=== PATIENT | male | born 1975 | race Caucasian/White ===

== ENCOUNTER 2018-10-01 19:36 | Emergency (ER) | payer MEDICAID ==
[~2018-10-01] VITALS: Ht 170.2 cm; Wt 119.3 kg
[2018-10-01 19:49] VITALS: BP 122/50
--- NOTE | 2018-10-01 19:52 | NUR ---
Pt taken to bed 11.
--- NOTE | 2018-10-01 20:00 | NUR ---
43 Y/O MALE PRESENTS TO ED, C/O LEFT FLANK ACHING PAIN. PT STATES PAIN STARTED 2 DAYS AGO AND RADIATES TO HIS GROIN AND RIGHT LEG. AMBULATES SELF WITH SLOW STEADY GAIT. PT DENIES PAIN VOIDING. PT STATES HE FEELS PRESSURED PAIN DURING BM. DENIES ANY CONSTIPATION. ACTIVE BS ALL QUADRANTS. PT VSS. ERMD AWARE. WILL CONTINUE TO MONITOR.
[2018-10-01] MEDS ORDERED: CYCLOBENZAPRINE 10 MG TAB PO ONE (20:15)
[2018-10-01] MEDS ORDERED: KETOROLAC 60 MG/2 ML VIAL IM ONE (20:15)
--- NOTE | 2018-10-01 20:50 | NUR ---
PT TAKEN TO X RAY
[2018-10-01] MEDS ORDERED: HYDROcodone/APAP 5/325 MG 1 TAB TAB PO ONE (21:40)
[2018-10-01 21:57] VITALS: BP 122/50
--- NOTE | 2018-10-01 21:57 | NUR ---
PT DISCHARGE WITH PAPERWORK. RX MOTRIN AND FLEXERIL. EDUCATED PT REGARDING MEDICATIONS AND SIDE EFFECTS. EDUCATED PT REGARDING DISCHARGE DIAGNOSIS. PT VERBALIZED UNDERSTANDING OF TEACHING. TOLD PT TO FOLLOW UP WITH PCP AND WHEN TO RETURN TO ED. PT VSS. ALL QUESTIONS ANSWERED.
== END 2018-10-01 21:57 | disposition home or self-care (01) ==
LOC: MED 19:36
DX: S39.012A Strain of muscle, fascia and tendon of lower back, initial encounter (principal); X58.XXXA Exposure to other specified factors, initial encounter; Y93.89 Activity, other specified; Y92.89 Other specified places as the place of occurrence of the external cause; Y99.8 Other external cause status
CPT/HCPCS: 72110; 96372; 99283; J1885

== ENCOUNTER 2023-08-25 15:54 | Emergency (ER) | payer MEDICAID, OTHER ==
[~2023-08-25] VITALS: Ht 170.2 cm; Wt 128.5 kg
[2023-08-25 16:32] VITALS: BP 128/68; PULSE 83; RESP 19; TEMP 97.8; O2SAT 97
[2023-08-25] MEDS: KETOROLAC 30 MG/ML VIAL IM ONE (17:46)
[2023-08-25 17:55] VITALS: O2SAT 97
[2023-08-25 18:00] VITALS: O2SAT 97
[2023-08-25 18:02] LABS: BASOPHILS # (AUTO) 0.1 K/uL (0.00-0.22); BASOPHILS % (AUTO) 0.9 % (0.0-2.0); EOSINOPHILS # (AUTO) 0.2 K/uL (0-0.4); EOSINOPHILS % (AUTO) 2.6 % (0.0-4.0); HEMOGLOBIN 13.6 g/dL (12.0-18.0); LYMPHOCYTES # (AUTO) 1.7 K/uL (2.0-11.5); LYMPHOCYTES % (AUTO) 28.7 % (20.5-51.1); MEAN CORPUSCULAR HEMOGLOBIN 32 pg (27-31); MEAN CORPUSCULAR HGB CONC 33 g/dL (33-37); MEAN CORPUSCULAR VOLUME 97.2 fL (80-94); MONOCYTES # (AUTO) 0.6 K/uL (0.8-1.0); MONOCYTES % (AUTO) 10.3 % (1.7-9.3); NEUTROPHILS # (AUTO) 3.3 K/uL (1.8-7.7); NEUTROPHILS % (AUTO) 57.5 % (42.2-75.2); PLATELET COUNT (AUTO) 124 K/uL (140-450); RED BLOOD CELL COUNT(AUTO) 4.21 MIL/uL (4.20-6.10); WHITE BLOOD COUNT (AUTO) 5.8 K/uL (4.8-10.8)
[2023-08-25 18:13] LABS: ANION GAP 12.5 (8-16); CARBON DIOXIDE 27.9 mmol/L (21-32); CREATININE 0.7 mg/dL (0.6-1.3); POTASSIUM 4.4 mmol/L (3.5-5.1)
[2023-08-25 18:20] LABS: ALANINE AMINOTRANSFERASE 49 U/L (12-78); ALBUMIN 2.6 g/dL (3.4-5.0); ALKALINE PHOSPHATASE 283 U/L (50-136); ASPARTATE AMINOTRANSFERASE 83 U/L (15-37); BILIRUBIN,DIRECT 1.3 mg/dL (0.0-0.3); LIPASE 72 U/L (16-77); TOTAL BILIRUBIN 2.4 mg/dL (0.0-1.0); TOTAL PROTEIN, SERUM 7.8 g/dL (6.4-8.2)
[2023-08-25 21:30] LABS: APPEARANCE,URINE CLEAR (CLEAR); BILIRUBIN,URINE 1+ (NEGATIVE); BLOOD, URINE NEGATIVE (NEGATIVE); COLOR,URINE ORANGE (YELLOW); LEUKOCYTE ESTERASE ,URINE NEGATIVE (NEGATIVE); NITRITE, URINE NEGATIVE (NEGATIVE); PROTEIN,URINE NEGATIVE (NEGATIVE); UGLUCOSE NEGATIVE (NEGATIVE)
[2023-08-25 21:35] LABS: ICTOTEST NEGATIVE (NEGATIVE)
== END 2023-08-25 19:15 | disposition home or self-care (01) ==
LOC: MED 15:54
DX: R60.9 Edema, unspecified (principal); K74.60 Unspecified cirrhosis of liver
CPT/HCPCS: 36415; 71045; 76705; 80048; 80076; 81003; 83690; 83880; 84484; 85025; 93005; 96372; 99285; J1885; Q0092

== ENCOUNTER 2023-10-14 23:35 | Inpatient (IN) | payer OTHER ==
[~2023-10-14] VITALS: Ht 170.2 cm; Wt 107.5 kg
[~2023-10-14 23:35] MED LIST: FURO-570 PO; LACT-191 PO; SPIR100T PO
[2023-10-14 23:41] VITALS: BP 111/65; PULSE 79; RESP 16; TEMP 97.4; O2SAT 97
[2023-10-15 00:24] LABS: BASOPHILS # (AUTO) 0.1 K/uL (0.00-0.22); BASOPHILS % (AUTO) 1.4 % (0.0-2.0); EOSINOPHILS # (AUTO) 0.1 K/uL (0-0.4); EOSINOPHILS % (AUTO) 2.2 % (0.0-4.0); HEMATOCRIT 39.6 % (36-52); HEMOGLOBIN 13.9 g/dL (12.0-18.0); LYMPHOCYTES # (AUTO) 1.2 K/uL (2.0-11.5); LYMPHOCYTES % (AUTO) 22.4 % (20.5-51.1); MEAN CORPUSCULAR HEMOGLOBIN 35 pg (27-31); MEAN CORPUSCULAR HGB CONC 35 g/dL (33-37); MEAN CORPUSCULAR VOLUME 98.6 fL (80-94); MONOCYTES # (AUTO) 0.6 K/uL (0.8-1.0); MONOCYTES % (AUTO) 10.8 % (1.7-9.3); NEUTROPHILS # (AUTO) 3.5 K/uL (1.8-7.7); NEUTROPHILS % (AUTO) 63.2 % (42.2-75.2); PLATELET COUNT (AUTO) 105 K/uL (140-450); RED BLOOD CELL COUNT(AUTO) 4.02 MIL/uL (4.20-6.10); RED CELL DISTRIBUTION WIDTH 16.3 % (11.6-13.7); WHITE BLOOD COUNT (AUTO) 5.6 K/uL (4.8-10.8)
[2023-10-15 00:39] LABS: ANION GAP 10.6 (8-16); CALCIUM 8.8 mg/dL (8.5-10.1); CARBON DIOXIDE 25.6 mmol/L (21-32); POTASSIUM 4.2 mmol/L (3.5-5.1)
[2023-10-15 00:43] LABS: ALBUMIN 2.9 g/dL (3.4-5.0); BILIRUBIN,DIRECT 1.3 mg/dL (0.0-0.3); TOTAL BILIRUBIN 2.3 mg/dL (0.0-1.0); TOTAL PROTEIN, SERUM 8.7 g/dL (6.4-8.2)
[2023-10-15] MEDS: KETOROLAC 30 MG/ML VIAL IVP ONE (00:47)
[2023-10-15] MEDS: MORPHINE SULFATE 4 MG/ML SYR IVP ONE (01:19)
[2023-10-15] MEDS ORDERED: BUME1TAB92 PO (01:27)
[2023-10-15] MEDS ORDERED: SPIR50TA4 PO (01:27)
[2023-10-15] MEDS ORDERED: ACETAMINOPHEN 325 MG TAB PO PRN (02:20)
[2023-10-15] MEDS ORDERED: ONDANSETRON 4 MG/2 ML VIAL IVP PRN (02:20)
[2023-10-15] MEDS ORDERED: HYDROcodone/APAP 5/325 MG 1 TAB TAB PO PRN (02:20)
[2023-10-15] MEDS ORDERED: MORPHINE SULFATE 2 MG/ML SYR IVP PRN (02:20)
[2023-10-15] MEDS ORDERED: LORazepam 2 MG/ML VIAL IVP PRN (02:20)
[2023-10-15] MEDS ORDERED: PIPERACILLIN/TAZOBACTAM 3.375 GM VIAL IV ONE (05:04)
[2023-10-15] MEDS: PIPERACILLIN/TAZOBACTAM 3.375 GM in DEXTROSE 5% 50 ML IV SCH (05:10)
[2023-10-15] MEDS: PANTOPRAZOLE 40 MG INJ VIAL IVP SCH (09:18)
[2023-10-15 11:23] VITALS: PULSE 76
[2023-10-15 12:00] VITALS: BP 101/68; PULSE 76; RESP 16; TEMP 98.8; O2SAT 97
[2023-10-15 13:18] LABS: INR 1.43 (0.8-1.2); PROTHROMBIN TIME 14.7 secs (10.8-13.4)
[2023-10-15] MEDS: DEXT 5% / NACL 0.45% 1,000 ML IV SCH (14:48)
[2023-10-15 16:00] VITALS: BP 98/54; PULSE 61; RESP 18; TEMP 97.8; O2SAT 94
[2023-10-15 20:00] VITALS: BP 110/56; RESP 18; TEMP 97.3; O2SAT 95
[2023-10-15] MEDS: MEDS-TO-BEDS MC SCH (20:43)
[2023-10-15 22:18] VITALS: RESP 18; O2SAT 95
[2023-10-16 04:00] VITALS: BP 108/49; PULSE 71; RESP 18; TEMP 97; O2SAT 95
[2023-10-16 06:56] LABS: BASOPHILS % (AUTO) 0.6 % (0.0-2.0); EOSINOPHILS # (AUTO) 0.1 K/uL (0-0.4); EOSINOPHILS % (AUTO) 3.3 % (0.0-4.0); HEMATOCRIT 41.1 % (36-52); HEMOGLOBIN 14.1 g/dL (12.0-18.0); LYMPHOCYTES # (AUTO) 1.3 K/uL (2.0-11.5); LYMPHOCYTES % (AUTO) 29.2 % (20.5-51.1); MEAN CORPUSCULAR HEMOGLOBIN 34 pg (27-31); MEAN CORPUSCULAR HGB CONC 34 g/dL (33-37); MONOCYTES # (AUTO) 0.6 K/uL (0.8-1.0); MONOCYTES % (AUTO) 12.4 % (1.7-9.3); NEUTROPHILS # (AUTO) 2.5 K/uL (1.8-7.7); NEUTROPHILS % (AUTO) 54.5 % (42.2-75.2); PLATELET COUNT (AUTO) 104 K/uL (140-450); RED BLOOD CELL COUNT(AUTO) 4.11 MIL/uL (4.20-6.10); RED CELL DISTRIBUTION WIDTH 16.2 % (11.6-13.7); WHITE BLOOD COUNT (AUTO) 4.5 K/uL (4.8-10.8)
[2023-10-16 07:39] LABS: ALBUMIN 2.6 g/dL (3.4-5.0); ANION GAP 10.5 (8-16); CALCIUM 8.5 mg/dL (8.5-10.1); CARBON DIOXIDE 26.9 mmol/L (21-32); CREATININE 1.1 mg/dL (0.6-1.3); MAGNESIUM 1.8 mg/dL (1.8-2.4); POTASSIUM 4.4 mmol/L (3.5-5.1); TOTAL BILIRUBIN 3.9 mg/dL (0.0-1.0); TOTAL PROTEIN, SERUM 8.2 g/dL (6.4-8.2)
[2023-10-16 08:00] VITALS: BP 99/54; PULSE 62; RESP 18; TEMP 97.9; O2SAT 95
[2023-10-16] MEDS: BUPIVACAINE-MPF 0.25% 30 ML VIAL INJ ONE (09:49)
[2023-10-16] MEDS ORDERED: SEVOFLURANE 250 ML BTL INH ONE (10:05)
[2023-10-16] MEDS: MIDAZOLAM 2 MG/2 ML VIAL ONE (10:10)
[2023-10-16] MEDS: fentaNYL citrate 0.05 MG/ML VIAL ONE (10:10)
[2023-10-16] MEDS: SUCCINYLCHOLINE CHLORIDE 200 MG/10 ML VIAL IVP ONE (10:54)
[2023-10-16] MEDS: PROPOFOL 200 MG/20 ML VIAL IV ONE (10:54)
[2023-10-16] MEDS: ROCURONIUM 50 MG/5 ML VIAL IV ONE (10:54)
[2023-10-16] MEDS: LIDOCAINE MPF 2% 100 MG/5 ML VIAL INJ ONE (10:55)
[2023-10-16] MEDS: METOCLOPRAMIDE 10 MG/2 ML INJ VIAL ONE (10:55)
[2023-10-16] MEDS: ONDANSETRON 4 MG/2 ML VIAL ONE (10:55)
[2023-10-16] MEDS: KETOROLAC 30 MG/ML VIAL ONE (10:55)
[2023-10-16] MEDS: SUGAMMADEX SODIUM 200 MG/2 ML VIAL IV ONE (10:56)
[2023-10-16] MEDS: NACL 0.9% 1,000 ML IV SCH (11:20)
[2023-10-16] MEDS ORDERED: MEPERIDINE 25 MG/ML SYR IVP PRN (11:20)
[2023-10-16] MEDS ORDERED: ONDANSETRON 4 MG/2 ML VIAL IVP PRN (11:20)
[2023-10-16] MEDS ORDERED: diphenhydrAMINE 50 MG/ML VIAL IVP PRN (11:20)
[2023-10-16] MEDS: HYDROmorphone 1 MG/ML AMP IVP PRN (11:35)
[2023-10-16] MEDS: HYDROmorphone PFS 2 MG/ML SYR ONE (11:37)
[2023-10-16 12:00] VITALS: BP 99/54; RESP 18; TEMP 97.9; O2SAT 95
[2023-10-16 16:00] VITALS: BP 98/54; PULSE 71; RESP 18; TEMP 98.5; O2SAT 95
[2023-10-16 16:05] LABS: BASOPHILS # (AUTO) 0.1 K/uL (0.00-0.22); BASOPHILS % (AUTO) 0.7 % (0.0-2.0); EOSINOPHILS # (AUTO) 0.1 K/uL (0-0.4); EOSINOPHILS % (AUTO) 0.9 % (0.0-4.0); HEMATOCRIT 39.1 % (36-52); HEMOGLOBIN 13.4 g/dL (12.0-18.0); LYMPHOCYTES # (AUTO) 1.2 K/uL (2.0-11.5); LYMPHOCYTES % (AUTO) 16.4 % (20.5-51.1); MEAN CORPUSCULAR HEMOGLOBIN 34 pg (27-31); MEAN CORPUSCULAR HGB CONC 34 g/dL (33-37); MONOCYTES # (AUTO) 0.8 K/uL (0.8-1.0); MONOCYTES % (AUTO) 10.6 % (1.7-9.3); NEUTROPHILS # (AUTO) 5.1 K/uL (1.8-7.7); NEUTROPHILS % (AUTO) 71.4 % (42.2-75.2); PLATELET COUNT (AUTO) 102 K/uL (140-450); RED BLOOD CELL COUNT(AUTO) 3.91 MIL/uL (4.20-6.10); RED CELL DISTRIBUTION WIDTH 16.3 % (11.6-13.7); WHITE BLOOD COUNT (AUTO) 7.1 K/uL (4.8-10.8)
[2023-10-16] MEDS: ALBUMIN HUMAN 25% 100 ML IV SCH (17:31)
[2023-10-16 20:00] VITALS: BP 102/58; PULSE 72; RESP 18; TEMP 97.5; O2SAT 93; O2SAT 95
[2023-10-17] VITALS (8 sets, daily range): BP systolic 95–124; BP diastolic 52–59; PULSE 65–80; RESP 17–20; TEMP 97.2–97.9; O2SAT 91–96
[2023-10-17 02:48] LABS: BASOPHILS % (AUTO) 0.9 % (0.0-2.0); EOSINOPHILS # (AUTO) 0.1 K/uL (0-0.4); EOSINOPHILS % (AUTO) 2.3 % (0.0-4.0); HEMATOCRIT 36.8 % (36-52); HEMOGLOBIN 12.5 g/dL (12.0-18.0); LYMPHOCYTES # (AUTO) 1.4 K/uL (2.0-11.5); LYMPHOCYTES % (AUTO) 25.3 % (20.5-51.1); MEAN CORPUSCULAR HEMOGLOBIN 34 pg (27-31); MEAN CORPUSCULAR HGB CONC 34 g/dL (33-37); MEAN CORPUSCULAR VOLUME 100.2 fL (80-94); MONOCYTES # (AUTO) 0.7 K/uL (0.8-1.0); NEUTROPHILS # (AUTO) 3.2 K/uL (1.8-7.7); NEUTROPHILS % (AUTO) 58.5 % (42.2-75.2); PLATELET COUNT (AUTO) 87 K/uL (140-450); RED BLOOD CELL COUNT(AUTO) 3.67 MIL/uL (4.20-6.10); RED CELL DISTRIBUTION WIDTH 16.7 % (11.6-13.7); WHITE BLOOD COUNT (AUTO) 5.5 K/uL (4.8-10.8)
[2023-10-18 04:00] VITALS: BP 100/50; PULSE 70; RESP 18; TEMP 97.2; O2SAT 93
[2023-10-18 09:20] VITALS: PULSE 78; RESP 20; O2SAT 99
[2023-10-18 13:31] VITALS: BP 135/68; PULSE 75; RESP 20; TEMP 97.1
== END 2023-10-18 15:04 | disposition home or self-care (01) | DRG 227 ==
LOC: MED 23:35 → MTU 10-15 02:18
PROVIDERS: ADMIT Hospitalist; ATTEND Hospitalist
PROC: 30233K1 Transfusion of Nonautologous Frozen Plasma into Peripheral Vein, Percutaneous Approach (ICD-10-PCS; 2023-10-16)
PROC: 0WUF4JZ Supplement Abdominal Wall with Synthetic Substitute, Percutaneous Endoscopic Approach (ICD-10-PCS; principal; 2023-10-16 10:00)
DX: K43.6 Other and unspecified ventral hernia with obstruction, without gangrene (principal); E44.0 Moderate protein-calorie malnutrition; D69.6 Thrombocytopenia, unspecified; K70.0 Alcoholic fatty liver; R71.0 Precipitous drop in hematocrit; E87.1 Hypo-osmolality and hyponatremia; Z79.899 Other long term (current) drug therapy; Z88.8 Allergy status to other drugs, medicaments and biological substances; K91.840 Postprocedural hemorrhage of a digestive system organ or structure following a digestive system procedure; Y83.8 Other surgical procedures as the cause of abnormal reaction of the patient, or of later complication, without mention of misadventure at the time of the procedure; Z68.37 Body mass index [BMI] 37.0-37.9, adult
CPT/HCPCS: 36415; 36430; 74250; 80048; 80053; 80076; 83690; 83735; 85025; 85610; 86886; 86900; 86901; 86920; 87040; 87081; 93005; 99285; C1781; J0330; J1170; J1644; J1885; J2001; J2250; J2270; J2405; J2470; J2543; J2704; J2765; J3010; J3490; J7030; J7060; P9017; P9046; Q9967

== ENCOUNTER 2023-10-18 18:58 | Emergency (ER) | payer OTHER ==
[~2023-10-18] VITALS: Ht 170.2 cm; Wt 106.6 kg
[~2023-10-18 18:58] MED LIST changes: +BUME1TAB92 PO; -LACT-191 PO; -SPIR100T PO; +SPIR50TA4 PO
[2023-10-18 19:08] VITALS: BP 99/52; PULSE 79; RESP 22; TEMP 98.2; O2SAT 95
[2023-10-18 20:00] VITALS: TEMP 98.2
[2023-10-18 20:03] LABS: BASOPHILS % (AUTO) 0.8 % (0.0-2.0); EOSINOPHILS # (AUTO) 0.1 K/uL (0-0.4); EOSINOPHILS % (AUTO) 2.3 % (0.0-4.0); HEMATOCRIT 36.5 % (36-52); HEMOGLOBIN 12.5 g/dL (12.0-18.0); LYMPHOCYTES # (AUTO) 1.4 K/uL (2.0-11.5); LYMPHOCYTES % (AUTO) 26.9 % (20.5-51.1); MEAN CORPUSCULAR HEMOGLOBIN 34 pg (27-31); MEAN CORPUSCULAR HGB CONC 34 g/dL (33-37); MEAN CORPUSCULAR VOLUME 100.2 fL (80-94); MONOCYTES # (AUTO) 0.7 K/uL (0.8-1.0); MONOCYTES % (AUTO) 13.3 % (1.7-9.3); NEUTROPHILS # (AUTO) 2.9 K/uL (1.8-7.7); NEUTROPHILS % (AUTO) 56.7 % (42.2-75.2); PLATELET COUNT (AUTO) 85 K/uL (140-450); RED BLOOD CELL COUNT(AUTO) 3.64 MIL/uL (4.20-6.10); RED CELL DISTRIBUTION WIDTH 16.4 % (11.6-13.7); WHITE BLOOD COUNT (AUTO) 5.1 K/uL (4.8-10.8)
[2023-10-18 20:42] LABS: ANION GAP 11.9 (8-16); CARBON DIOXIDE 24.3 mmol/L (21-32); CREATININE 0.5 mg/dL (0.6-1.3); POTASSIUM 4.2 mmol/L (3.5-5.1)
[2023-10-18 22:53] VITALS: BP 98/45; PULSE 79; RESP 22; O2SAT 94
== END 2023-10-18 23:58 | disposition home or self-care (01) ==
LOC: MED 18:58
DX: L76.34 Postprocedural seroma of skin and subcutaneous tissue following other procedure (principal); Z87.448 Personal history of other diseases of urinary system; Z98.890 Other specified postprocedural states; Z79.899 Other long term (current) drug therapy
CPT/HCPCS: 36415; 74177; 80048; 85025; 99285; Q9967

== ENCOUNTER 2023-11-26 07:42 | Day surgery (SDC) | payer OTHER ==
[~2023-11-26] VITALS: Ht 170.2 cm; Wt 127.0 kg
[2023-11-26] MEDS ORDERED: fentaNYL citrate 0.05 MG/ML VIAL ONE (08:41)
[2023-11-26] MEDS: fentaNYL citrate 0.05 MG/ML VIAL IVP ONE (10:53)
[2023-11-26] MEDS: LIDOCAINE 2% 100 MG/5 ML UJET TP ONE (11:04)
== END 2023-11-26 12:10 | disposition home or self-care (01) ==
LOC: MDS 07:42 → MMU 07:49 → MDS 12:10
PROVIDERS: ATTEND Internal Medicine Gastroenterology
DX: Z12.11 Encounter for screening for malignant neoplasm of colon (principal); K63.5 Polyp of colon; E78.00 Pure hypercholesterolemia, unspecified; F32.A Depression, unspecified; F17.210 Nicotine dependence, cigarettes, uncomplicated; E66.9 Obesity, unspecified; Z68.41 Body mass index [BMI] 40.0-44.9, adult; Z79.899 Other long term (current) drug therapy; Z98.890 Other specified postprocedural states
CPT/HCPCS: 45385; J3010